=== PATIENT | female | born 1970 | race Asian ===

== ENCOUNTER 2022-10-14 12:07 | Emergency (ER) | payer BC, SELFPAY ==
--- NOTE | ~2022-10-14 | CT_ITS ---
EXAMINATION: Head and cervical spine CT without IV contrast CLINICAL INFORMATION: Trauma COMPARISON: None. TECHNIQUE: Axial images through the head and cervical spine without IV contrast. Sagittal and coronal reconstructions on the technologist workstation were performed. This CT examination was performed using dose optimization techniques as appropriate, variously including the following: *Automated exposure control *Adjustment of mA and/or kV according to patient size (this includes techniques or standardized protocols for targeted exams where dose is matched to indication/reason for exam; i.e. extremities or head) *Use of iterative reconstruction technique DLP 902 mg/cm FINDINGS: Head CT: There is no evidence of an extra-axial collection. There is no evidence of intra-axial or extra-axial hemorrhage. The ventricles and extra-axial CSF spaces are appropriate. Rule out matter differentiation is normal. No mass, mass effect or infarct. No skull fracture. Visualized paranasal sinuses, mastoid air cells are clear. Cervical spine CT: Bone alignment is normal. No fracture or dislocation. There is degenerative spondylosis and disc space narrowing at C5-C6 and C6-C7. There is linear calcification posterior to C6-C7 disc questionable for calcified disc. Prevertebral soft tissues are normal. There is soft tissue ossification posterior to the C5 spinous process suggestive of old soft tissue trauma. Visualized lung apices are clear. CT/CT head/brain wo IV con IMPRESSION: Head CT: Unremarkable exam Cervical spine CT: Degenerative changes at C5-C6 and C6-C7.
--- NOTE | ~2022-10-14 | CT_ITS ---
EXAMINATION: CT ANGIOGRAM HEAD CT ANGIOGRAM NECK CLINICAL INFORMATION: Occipital pain. Minor neck injury. Dissection. COMPARISON: CT head from 10/14/2022. TECHNIQUE: Initial noncontrast electronic industrial controls mechanic imaging of the head and neck was performed. Comparison is made with noncontrast head CT from earlier today. Test bolus sequences followed by intravenous administration 70 mL of Omnipaque 350. Helical imaging was performed in the axial plane from the aortic arch to the skull vertex. Delayed postcontrast imaging of the head was also performed. The data was processed at the vascular ultrasound technologist's workstation for generation of MIP sequences. Angled MIPs and volume rendered reformatted images were also generated at an offline 3D workstation. Stenoses are assessed in accordance with NASCET criteria unless otherwise indicated. This CT examination was performed using dose optimization techniques as appropriate, variously including the following: *Automated exposure control. *Adjustment of mA and/or kV according to patient size (this includes techniques or standardized protocols for targeted exams where dose is matched to indication/reason for exam; i.e. extremities or head). *Use of iterative reconstruction technique. DLP: 1489 mGy-cm FINDINGS: CT Head: There is no evidence of acute intracranial hemorrhage or edematous territorial infarction. A few foci of hypoattenuation in the periventricular and deep white matter most commonly seen with mild microangiopathy. Hahn-white matter differentiation is preserved. The ventricles are normal in size and configuration. No evidence for obstructive hydrocephalus. No abnormal mass effect or midline shift. No extra-axial fluid collections. No pathologic intra-axial enhancement or regional oligemia. No acute soft tissue or osseous abnormalities. Mild mucosal thickening of the paranasal sinuses. The mastoid air cells and middle ear cavities are clear. CT Neck: The thyroid gland and remaining cervical soft tissues are within normal limits. Straightening of the normal cervical lordosis. Moderate degenerative disc disease at C5-C6 and C6-C7. 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 There appears to be at least mild spinal canal stenosis at C6-C7. Facet and uncovertebral joint arthropathy leads to osseous encroachment on the neural foramina at C5-C6 and C6-C7. CT Upper Chest: The visualized lung apices and upper mediastinum are within normal limits. Neck CTA: Aortic Arch: Normal contour and caliber. Classic 3 vessel branching pattern of the aortic arch. Great Vessel Origins: No significant stenosis of the branch origins. Right Common Carotid Artery: No focal stenosis or occlusion. Cervical Right Internal Carotid Artery: Normal opacification without focal stenosis or occlusion. Left Common Carotid Artery: No focal stenosis or occlusion. Cervical Left Internal Carotid Artery: Normal opacification without focal stenosis or occlusion. Cervical Right Vertebral Artery: Co-dominant. No focal stenosis or occlusion. Cervical Left Vertebral Artery: Co-dominant. No focal stenosis or occlusion. Brain CTA: Intracranial Internal Carotid Arteries: No focal stenosis or occlusion. Right Anterior Cerebral Artery: Normal A1 segment. Normal opacification of the distal GLORIA segments. Left Anterior Cerebral Artery: The A1 segment is diminutive. Normal opacification of the distal GLORIA segments. Anterior Communicating Artery: Normal. Right Middle Cerebral Artery: Normal M1 segment of the MCA without focal stenosis or occlusion. Normal arborization of the distal segments. Left Middle Cerebral Artery: Normal M1 segment of the MCA without focal stenosis or occlusion. Normal arborization of the distal segments. Right Vertebral Artery: Normal V4 segment. Normal opacification of the proximal segments of the posterior inferior cerebellar artery. Left Vertebral Artery: Normal V4 segment. The posterior inferior cerebellar artery is not well opacified; however, there is no CT evidence of acute occlusion. Basilar Artery: Normal without focal stenosis or occlusion. Normal appearance of the proximal superior cerebellar arteries. Right Posterior Cerebral Artery: The P1 segment is diminutive. origin of the ACID RETORT OPERATOR with robust opacification of the posterior communicating artery. Normal opacification of the distal ACID RETORT OPERATOR segments. Left Posterior Cerebral Artery: The P1 segment is diminutive. origin of the ACID RETORT OPERATOR with robust opacification of the posterior communicating artery. Normal opacification of the distal ACID RETORT OPERATOR segments. Normal opacification of the superior sagittal, straight, transverse, and sigmoid sinuses. CT/CT angio head neck IMPRESSION: 1. No evidence of acute intracranial hemorrhage or edematous territorial infarction. Mild nonspecific white matter changes most commonly seen with mild underlying microangiopathy. 2. CTA of the head and neck without proximal occlusion or flow-limiting stenosis. No evidence of blunt traumatic vascular injury. 3. 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 There appears to be at least mild spinal canal stenosis at C6-C7.
--- NOTE | ~2022-10-14 | CT_ITS ---
EXAMINATION: Head and cervical spine CT without IV contrast CLINICAL INFORMATION: Trauma COMPARISON: None. TECHNIQUE: Axial images through the head and cervical spine without IV contrast. Sagittal and coronal reconstructions on the technologist workstation were performed. This CT examination was performed using dose optimization techniques as appropriate, variously including the following: *Automated exposure control *Adjustment of mA and/or kV according to patient size (this includes techniques or standardized protocols for targeted exams where dose is matched to indication/reason for exam; i.e. extremities or head) *Use of iterative reconstruction technique DLP 902 mg/cm FINDINGS: Head CT: There is no evidence of an extra-axial collection. There is no evidence of intra-axial or extra-axial hemorrhage. The ventricles and extra-axial CSF spaces are appropriate. Rule out matter differentiation is normal. No mass, mass effect or infarct. No skull fracture. Visualized paranasal sinuses, mastoid air cells are clear. Cervical spine CT: Bone alignment is normal. No fracture or dislocation. There is degenerative spondylosis and disc space narrowing at C5-C6 and C6-C7. There is linear calcification posterior to C6-C7 disc questionable for calcified disc. Prevertebral soft tissues are normal. There is soft tissue ossification posterior to the C5 spinous process suggestive of old soft tissue trauma. Visualized lung apices are clear. CT/CT cervical spine wo IV con IMPRESSION: Head CT: Unremarkable exam Cervical spine CT: Degenerative changes at C5-C6 and C6-C7.
[2022-10-14 12:26] VITALS: BP 135/80; PULSE 63; RESP 18; TEMP 36.6; O2SAT 100; BMI 17.7
--- NOTE | 2022-10-14 12:26 | ED.HEATRA ---
HPI - Head Injury General Chief complaint: Head Injury Stated complaint: Spinal cord pressure sent from urgent care Time Seen by Provider: 10/14/22 12:45 Source: patient Mode of arrival: ambulatory Limitations: no limitations History of Present Illness HPI Narrative: Patient is a 51 yo F presenting with increasing head pressure s/p injury. She states on Thursday 10/12, she tripped over a rendering equipment tender in her garage and a ladder fell on her head, although it caught on her car, so the fall weight of the ladder did not hit her head. She states she had no head pain at the time, but has had increasing head pressure since then. She notes positional head an d cervical neck pian when she tilts her head back. SHe had not taken pain medciation. No acute vision changes, dizziness, nausea, vomiting, weakness, numbness, or tingling. Complaint: head injury and fall Onset (ago): day(s) (3) Mechanism of Injury: fall Place: home Loss of Consciousness: no Location of injury: occipital and other (neck, cervical spine) Quality: other (pressure) Radiation: none Other Injuries: none Associated symptoms: denies other symptoms Related Data Allergies Allergy/AdvReac Type Severity Reaction Status Date / Time No Known Allergies Allergy Verified 10/14/22 12:30 Review of Systems Review of Systems: Yes all other systems are reviewed and are negative [facility] Social History Social History Advance Directives: No Advance Directives Information Provided: No Physical Exam Vital Signs: Vital Signs: Last Vital Signs Temp 98.4 F 10/14/22 15:34 Pulse 64 10/14/22 15:34 Resp 18 10/14/22 15:34 BP 119/74 10/14/22 15:34 Pulse Ox 100 10/14/22 15:34 O2 Del Method Room Air 10/14/22 15:34 BMI result Body Mass Index 17.7 Appearance: Alert. Oriented X3. No acute distress. Head: normocephalic, atraumatic. Eyes: Pupils equal, round and reactive to light. EOMI. Neck: Normal inspection. No pain with cervical palpation. No soft tissue tenderness bilaterally. Normal ROM. Pain when hyperextended. CVS: Normal heart rate and rhythm. Pulses normal. Respiratory: No respiratory distress. Breath sounds normal. Abdomen: Soft and nontender. Skin: Skin warm and dry. Normal skin color. Normal skin turgor. No rashes. Extremities: No lower extremity edema. No joint swelling. Neuro/psych: Oriented X 3. No motor deficit. No sensory deficit. CN II-XII intact. Normal speech and cognition. Normal gait, and cerebellar testing. Course Course Course Narrative: RME 51 yo female presenting from urgent care with head pressure. She had a fall on Wednesday and a ladder fell on her head. There was no LOC and she's not an anti-coagulation.She feels like the pressure inside her head is increasing, and she is now having nausea. Plan: head and cervical spine CT Medications Administered Discontinued Medications Generic Name Dose Route Start Last Admin Trade Name Freq PRN Reason Stop Dose Admin Acetaminophen 975 mg 10/14/22 14:37 10/14/22 14:48 Acetaminophen 325 Mg Tablet PO 10/14/22 14:38 Not Given ONCE ONE Iohexol 100 ml 10/14/22 17:06 10/14/22 17:07 Iohexol 350 Mg/Ml 100 Ml Infus..Btl IV 10/14/22 17:07 70 ml ONCE ONE Administration Medical Decision Making Medical Decision Making [facility] Narrative: Patient had a CT cervical spine and head done without acute findings. Her presentation is most consistent with a concussion . Nonfocal neuro exam. She would like an MRI. Case d/w Dr. Rosales who agrees patient does not require and MRI today. CTA head/neck and labs to RO cervical dissection were completed - no dissection. at this time patient is stable for d/c home with tylenol and motrin, follow up with PCP. all questions were answered. Differential Diagnosis Differential Diagnoses: The differential diagnosis associated with the presentation includes Concussion ICH cervical dissection cervical neck strain Lab Data [facility] Lab Attestation statement: I reviewed the patient's lab results. 10/14/22 14:54 10/14/22 14:54 Labs: Lab Results 10/14/22 10/14/22 Range/Units 14:54 14:54 WBC 6.6 (4.8-10.8) X10*3/uL RBC 4.51 (4.20-5.50) X10*6/uL Hgb 14.0 (12.0-16.0) g/dl Hct 41.9 (37.0-47.0) % MCV 92.9 (80.0-98.0) fL MCH 31.0 (27.0-33.0) pg MCHC 33.4 (31.0-35.0) g/dl RDW 11.9 (11.0-16.0) % Plt Count 280 (160-400) X10*3/uL MPV 9.4 (9.4-12.3) fL Immature Gran % (Auto) 0.3 (0.0-0.4) % Neut % (Auto) 64.9 (45-73) % Lymph % (Auto) 27.8 (20-40) % [place] % (Auto) 5.3 (2-11) % Eos % (Auto) 0.8 (0-4) % Baso % (Auto) 0.9 (0-2) % Lymph # (Auto) 1.8 (1.2-4.9) X10*3/uL [place] # (Auto) 0.4 (0.1-1.2) X10*3/uL Eos # (Auto) 0.1 (0.0-0.4) X10*3/uL Baso # (Auto) 0.1 (0.0-0.2) X10*3/uL Abs Immat Gran (auto) 0.02 (0.00-0.03) X10*3/uL Absolute Neuts (auto) 4.3 (2.0-8.3) x10*3/uL Absolute Nucleated RBC 0.000 (0.0-0.012) X10*3/uL Nucleated RBC % (auto) 0.0 (0.0-0.2) /100WBC Sodium 139 (135-145) mmol/L Potassium 4.3 (3.3-5.1) mmol/L Chloride 105 (96-108) mmol/L Carbon Dioxide 27 (22-29) mmol/L Anion Gap 11 L (12-20) BUN 9 (9-16) mg/dL Creatinine 0.67 (0.5-1.4) mg/dL Estim Creat Clear Calc 69.5 Estimated GFR > 60 Random Glucose 93 (60-115) mg/dL Calcium 9.6 (8.4-10.2) mg/dL Independent Interpretation I performed an independent interpretation of an: CT Scan Interpretation: no stroke, bleed or appreciated dissection, agree w/ radiology read Radiology Impression Discussion of test interpretation with radiology: I have reviewed the radiologist's reading. Radiologist Impression: ?CT/CT angio head neck IMPRESSION: 1.? No evidence of acute intracranial hemorrhage or edematous territorial infarction. Mild nonspecific white matter changes most commonly seen with mild underlying microangiopathy. 2.? CTA of the head and neck without proximal occlusion or flow-limiting stenosis. No evidence of blunt traumatic vascular injury. 3.? 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 There appears to be at least mild spinal canal stenosis at C6-C7. Prescription Management I considered prescription management with: Pain Medication Critical Care Time Critical Care Time Critical Care Time: No Discharge Plan Discharge Clinical Impression: Closed head injury Patient Disposition: Home, Self-Care Instructions: Head Injury (ED) Additional Instructions: Your CT scans today were reassuring, no stroke, no vascular problems or other concerning findings. Recommend motrin and tylenol for pain Follow up with your PCP CT/CT angio head neck IMPRESSION: 1.? No evidence of acute intracranial hemorrhage or edematous territorial infarction. Mild nonspecific white matter changes most commonly seen with mild underlying microangiopathy. 2.? CTA of the head and neck without proximal occlusion or flow-limiting stenosis. No evidence of blunt traumatic vascular injury. 3.? 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 There appears to be at least mild spinal canal stenosis at C6-C7. Interventions: ED Discharge Assessment Last Done: 10/14/22 19:09 Discharge Date/Time: 10/14/22 19:12
[2022-10-14 15:05] LABS: MANUAL DIFF FLAG NO
[2022-10-14 15:14] LABS: Basophils Absolute Auto 0.1 X10*3/uL (0.0-0.2); Basophils Percent Auto 0.9 % (0-2); Eosinophils Absolute Auto 0.1 X10*3/uL (0.0-0.4); Eosinophils Percent Auto 0.8 % (0-4); Hematocrit 41.9 % (37.0-47.0); Imm Gran Abs Auto 0.02 X10*3/uL (0.00-0.03); Imm Gran Pct Auto 0.3 % (0.0-0.4); Lymphocytes Absolute Auto 1.8 X10*3/uL (1.2-4.9); Lymphocytes Percent Auto 27.8 % (20-40); Mean Corpuscular HGB Conc 33.4 g/dl (31.0-35.0); Mean Corpuscular Volume 92.9 fL (80.0-98.0); Mean Platelet Volume 9.4 fL (9.4-12.3); Monocytes Absolute Auto 0.4 X10*3/uL (0.1-1.2); Monocytes Percent Auto 5.3 % (2-11); Neutrophils Absolute Auto 4.3 x10*3/uL (2.0-8.3); Neutrophils Percent Auto 64.9 % (45-73); Platelet Count 280 X10*3/uL (160-400); Red Blood Count 4.51 X10*6/uL (4.20-5.50); Red Cell Distribution Width 11.9 % (11.0-16.0); White Blood Count 6.6 X10*3/uL (4.8-10.8)
[2022-10-14 15:34] VITALS: BP 119/74; PULSE 64; RESP 18; TEMP 36.9; O2SAT 100
--- NOTE | 2022-10-14 15:45 | PC.NURSE ---
Addendum entered by Jaqueline Sandoval RN 10/14/22 15:46: pt stated she feels some pressure in the posterior head at time with the movement, no pain ,no pressure at rest . Alert and oriented x 4 neuro intact Original Note: gg
[2022-10-14 16:19] LABS: Anion Gap 11 (12-20); Blood Urea Nitrogen 9 mg/dL (9-16); Calcium 9.6 mg/dL (8.4-10.2); Carbon Dioxide 27 mmol/L (22-29); Chloride 105 mmol/L (96-108); Creatinine Clr Calc Pharmacy 69.5; Estimated Glomerular Filt Rate > 60; Glucose Random 93 mg/dL (60-115); Potassium 4.3 mmol/L (3.3-5.1); Sodium 139 mmol/L (135-145)
[2022-10-14] MEDS: iohexoL 350 MG/ML 100 ML INFUS..BTL IV (17:07)
--- NOTE | 2022-10-14 19:12 | PC.NURSE ---
Pt discharged home with self care instructions, pt verbalizes understanding and will return to dept with any new/worsening symptoms
== END 2022-10-14 19:12 | disposition home or self-care (01) ==
PROVIDERS: Physician Assistant; Emergency Provider Student in an Organized Health Care Education/Training Program
DX: S00.93XA Contusion of unspecified part of head, initial encounter (principal); R51.9 Headache, unspecified; M54.2 Cervicalgia; Y29.XXXA Contact with blunt object, undetermined intent, initial encounter; Y93.9 Activity, unspecified; Y92.009 Unspecified place in unspecified non-institutional (private) residence as the place of occurrence of the external cause; Y99.9 Unspecified external cause status; Z79.899 Other long term (current) drug therapy
CPT/HCPCS: 36415; 70450; 70496; 70498; 72125; 80048; 85025; 99283; 99284; Q9967